=== PATIENT | male | born 1985 | race Hispanic/Latino ===

== ENCOUNTER 2023-04-30 06:15 | Emergency (ER) | payer OTHER, SELFPAY ==
[2023-04-30] MEDS ORDERED: Dexamethasone 10 MG/ML VIAL ONE (06:41)
[2023-04-30] MEDS ORDERED: Ketorolac Tromethamine 30 MG/ML VIAL ONE (06:41)
== END 2023-04-30 07:07 | disposition home or self-care (01) ==
LOC: ERS 06:15
DX: M54.50 Low back pain, unspecified (principal); G89.29 Other chronic pain
CPT/HCPCS: 96372; 99283; J1100; J1885